=== PATIENT | male | born 1975 | race Caucasian/White ===

== ENCOUNTER 2019-12-01 01:55 | Emergency (ER) | payer SELFPAY ==
[2019-12-01] MEDS ORDERED: NORMAL SALINE 1000 ML 1,000 ML IV ONE (02:12)
[2019-12-01 02:36] LABS: ABSOLUTE EOSINOPHILS # (AUTO) 0.1 10^3/uL (0.0-0.6); ABSOLUTE LYMPHOCYTES (AUTO) 1.3 10^3/uL (0.5-4.7); ABSOLUTE MONOCYTES (AUTO) 0.7 10^3/uL (0.1-1.4); ABSOLUTE NEUT (AUTO) 5.8 10^3/uL (1.7-8.2); BASOPHILS % (AUTO) 0.2 % (0-2); EOSINOPHILS % (AUTO) 1.2 % (0-6); HEMATOCRIT 31.9 % (37.9-51.0); HEMOGLOBIN 11.5 g/dL (13.5-17.0); LYMPHOCYTES % (AUTO) 16.8 % (13-45); MEAN CORPUSCULAR HEMOGLOBIN 34.4 pg (27.0-33.4); MEAN CORPUSCULAR HGB CONC 36.1 g/dL (32.0-36.0); MEAN CORPUSCULAR VOLUME 95 fl (80-97); MONOCYTES % (AUTO) 9.3 % (3-13); RED BLOOD COUNT 3.35 10^6/uL (4.35-5.55); RED CELL DISTRIBUTION WIDTH 15.5 % (11.5-14.0); SEGMENTED NEUTROPHILS % (AUTO) 72.5 % (42-78); TOTAL CELLS COUNTED % (AUTO) 100 %
[2019-12-01 02:41] LABS: INTERNATIONAL RATION (INR) 2.01; PROTHROMBIN TIME 23.1 SEC (11.4-15.4)
[2019-12-01 02:48] LABS: ACETAMINOPHEN < 10 ug/mL (10-30); ALBUMIN 3.5 g/dL (3.5-5.0); ALCOHOL < 10 mg/dL (NONE DETECTED); ALKALINE PHOSPHATASE 156 U/L (38-126); ANION GAP 6 (5-19); ASPARTATE AMINO TRANSFERASE 114 U/L (17-59); BILIRUBIN,DIRECT 3.8 mg/dL (0.0-0.4); BILIRUBIN,TOTAL 8.4 mg/dL (0.2-1.3); BLOOD UREA NITROGEN 17 mg/dL (7-20); CALCIUM 8.7 mg/dL (8.4-10.2); CARBON DIOXIDE 24 mmol/L (22-30); CHLORIDE 105 mmol/L (98-107); GLUCOSE 122 mg/dL (75-110); POTASSIUM 3.6 mmol/L (3.6-5.0); SALICYLATE < 1.0 mg/dL (2.0-20.0); TOTAL PROTEIN 7.8 g/dL (6.3-8.2)
[2019-12-01 03:01] LABS: PLATELET COUNT 66 10^3/uL (150-450)
[2019-12-01 03:05] LABS: VENOUS BLOOD BASE EXCESS -0.9 mmol/L; VENOUS BLOOD HCO3 22.2 mmol/L (20-32); VENOUS BLOOD PCO2 31.3 mmHg (35-63); VENOUS BLOOD PH 7.47 (7.30-7.42)
--- NOTE | 2019-12-01 03:09 | ER Document Report ---
ED General - Related Data Home Medications: Folic acid 1 mg daily, propranolol 10 mg twice daily, Protonix 40 mg daily <NATALI STEVENSON - Last Filed: 12/01/19 06:04> <KIT GARCIA - Last Filed: 12/01/19 13:51> - General Mode of Arrival: Ambulatory Information source: Patient <DAMON INTERIANO - Last Filed: 12/01/19 17:29> - General Chief Complaint: Altered Mental Status Stated Complaint: ALTERED MENTAL STATUS Time Seen by Provider: 12/01/19 02:03 - HPI Notes: Patient is a 44-year-old male brought into the emergency department for evaluation. At this point I have very limited history. Evidently the patient was seen at [facility], discharged to go to [facility] for mental health/polysubstance abuse issues. He was at [facility] for approximately half an hour, staff there noted him to be jaundiced, have altered mental status, and did not feel he was adequately medically cleared. He was sent here for further evaluation. The patient cannot offer me no real medical history or information. (NATALI STEVENSON) - Related Data Allergies/Adverse Reactions: No Known Allergies Allergy (Unverified 12/01/19 04:41) Past Medical History - General Information source: Emergency Med Personnel, Outside Facility Records - Social History Smoking Status: Current Every Day Smoker Drug Abuse: Cocaine, Marijuana, Methamphetamine, Prescription drugs Family History: Other - Unable to obtain Patient has suicidal ideation: - pt unable to answer at this time Patient has homicidal ideation: - pt unable to answer at this time - Past Medical History Cardiac Medical History: Reports: Hx Hypertension GI Medical History: Reports: Hx Cirrhosis Psychiatric Medical History: Reports: Hx Depression <NATALI STEVENSON - Last Filed: 12/01/19 06:04> Review of Systems - Review of Systems -: Yes ROS unobtainable due to patient's medical condition <NATALI STEVENSON - Last Filed: 12/01/19 06:04> Physical Exam <NATALI STEVENSON - Last Filed: 12/01/19 06:04> - Vital signs Vitals: Resp Pulse Ox 18 96 12/01/19 01:59 12/01/19 01:59 - Notes Notes: Is a 44-year-old male who appears his stated age. He is lying in the bed, eyes closed, but will open them to verbal stimuli. He will follow commands. Only incomprehensible moans and sounds. Head is normocephalic and appears atraumatic, pupils are equal round, reactive to light. Sclera are icteric. Oral mucosa slightly dry. Heart is regular rate and rhythm, lungs are clear to oscillation bilaterally. Abdomen soft, nontender, normoactive bowel sounds. Skin is warm and dry, mild jaundice noted. Patient moves all 4 extremities spontaneously. Peripheral pulses are equal. (NATALI STEVENSON) Course - Laboratory Result Diagrams: 12/01/19 02:18 12/01/19 02:18 <NATALI STEVENSON - Last Filed: 12/01/19 06:04> - Laboratory Result Diagrams: 12/01/19 02:18 12/01/19 02:18 <KIT GARCIA - Last Filed: 12/01/19 13:51> - Laboratory Result Diagrams: 12/01/19 02:18 12/01/19 02:18 - Diagnostic Test Radiology reviewed: Image reviewed, Reports reviewed - CT head: No acute intracranial pathology CT abdomen and pelvis: Heterogeneity to the liver, compatible with cirrhosis, gallbladder sludge. No acute intra-abdominal pathology. Hepatobiliary scan: No obstruction or dysfunction noted. Chest x- ray: No acute cardiopulmonary findings. - EKG Interpretation by Me EKG shows normal: Sinus rhythm <DAMON INTERIANO - Last Filed: 12/01/19 17:29> - Re-evaluation Re-evalutation: 12/01/19 03:06 Patient presents to the emergency department for evaluation. He had laboratory investigations as ordered. I do not have a clear etiology of this patient's altered mental status. Certainly he has markedly elevated bilirubin, but I do not have a clear etiology for that at this time. His vital signs are stable. We will add imaging, continue to monitor. 12/01/19 04:48 In the meantime, I was able to obtain records from [facility] in regards to this patient. He evidently has a known history of cirrhosis. At this point I have already ordered an ultrasound of this patient's right upper quadrant to evaluate for any obstructive issues. Ultrasound was interpreted by radiology as showing a positive sonographic Gonzalez sign and gallbladder sludge. Will contact surgery in regards to evaluating this patient for possible cholecystitis. At this point the patient is afebrile, he has no leukocytosis. I do suspect that all of his issues are substance abuse induced. Otherwise, I compared patient's laboratory investigations to those done at [facility] earlier today, and they are largely unchanged. Patient is currently stable. Awaiting surgical consult for patient can be medically cleared. 12/01/19 06:[address] Mark, on-call surgeon. He recommends HIDA scan to further evaluate this patient's gallbladder. Orders placed. Assuming that in fact this patient does not have cholecystitis, I suspected. The patient will be medically cleared for psychosocial evaluation. (NATALI STEVENSON) 12/01/19 13:51 Patient care was transitioned to md by the overnight ED physician, Dr. Dyson, pending HIDA scan and reevaluation. Patient with no evidence for cholecystitis. Called in close communication up with Dr. Lazo who was made aware by the patient by the overnight surgeon. On reevaluation, patient is not having any abdominal pain and states he is hungry. He is awake, alert, and complaining of shoulder pain. Offered Tylenol or ibuprofen. Nursing note informs me the patient is having chest pain. EKG with no acute findings. Troponin and chest x-ray are ordered. Patient care will be transiti oned to Dr. Interiano. (KIT GARCIA) 12/01/19 17:21 Patient is alert and talking, CPK is normal review of his lab data history of cirrhosis, jaundice likely related to prior liver disease. The patient is medically cleared to go back to the psychiatric facility. (DAMON INTERIANO) - Vital Signs Vital signs: Temp Pulse Resp BP Pulse Ox 98.2 F 57 L 16 115/67 96 12/01/19 02:00 12/01/19 05:00 12/01/19 16:00 12/01/19 09:00 12/01/19 16:00 - Laboratory Laboratory results interpreted by me: 12/01/19 12/01/19 12/01/19 02:18 02:18 02:18 RBC 3.35 L Hgb 11.5 L Hct 31.9 L MCH 34.4 H MCHC 36.1 H RDW 15.5 H Plt Count 66 L PT 23.1 H VBG pH VBG pCO2 Sodium 135.4 L Glucose 122 H Total Bilirubin 8.4 H Direct Bilirubin 3.8 H AST 114 H Alkaline Phosphatase 156 H Creatine Kinase Urine Ketones Urine Urobilinogen Salicylates < 1.0 L Acetaminophen < 10 L 12/01/19 12/01/19 12/01/19 02:56 05:00 13:45 RBC Hgb Hct MCH MCHC RDW Plt Count PT VBG pH 7.47 H VBG pCO2 31.3 L Sodium Glucose Total Bilirubin Direct Bilirubin AST Alkaline Phosphatase Creatine Kinase 288 H Urine Ketones 20 H Urine Urobilinogen 4.0 H Salicylates Acetaminophen - EKG Interpretation by Me Additional EKG results interpreted by me: 12/01/19 03:08 Sinus bradycardia with a rate of 54 bpm. Normal axis, IVCD. Nonspecific ST and T wave changes, but no acute changes concerning for ischemia or infarction. No old studies available for comparison. (NATALI STEVENSON) Discharge <NATALI STEVENSON - Last Filed: 12/01/19 06:04> <KIT GARCIA - Last Filed: 12/01/19 13:51> <DAMON INTERIANO - Last Filed: 12/01/19 17:29> - Discharge Clinical Impression: Polysubstance abuse, Hyperbilirubinemia Altered mental status Qualifiers: Altered mental status type: unspecified Qualified Code(s): R41.82 - Altered mental status, unspecified Cirrhosis of liver Qualifiers: Hepatic cirrhosis type: other cirrhosis Qualified Code(s): K74.69 - Other cirrhosis of liver Condition: Stable Disposition: PSYCH HOSP/UNIT Additional Instructions: You are being discharged back to the [facility] for ongoing treatment and rehabilitation.
--- NOTE | 2019-12-01 04:31 | RADIOLOGY REPORT (SQ) ---
EXAM DESCRIPTION: US ABDOMEN LIMITED COMPLETED DATE/TME: 12/01/2019 03:11 CLINICAL HISTORY: 44 years Male, abnormal LFTs Comparison: None. LIMITATIONS: Bowel gas and body habitus artifact. FINDINGS: Gallbladder sludge, positive sonographic Gonzalez's test, 0.2 cm gallbladder wall thickness, moderate hepatic heterogeneity may indicated diffuse hepatic process such as fibrosis-cirrhosis, a 1.5-cm diameter common bile duct, no intrahepatic ductal dilation, hepatopetal patent flow of the portal vein, 10-cm right kidney with mild hydronephrosis, obscured pancreas, visualized vasculature/abdominal aorta, and no significant ascites appear otherwise unremarkable. IMPRESSION: 1. Gallbladder sludge and positive sonographic Gonzalez's test. Differential diagnosis includes cholecystitis and biliary colic. 2. 1.5 cm diameter enlarged common bile duct, nonspecific. No evidence of intrahepatic ductal dilation. 3. Mildly dilated right renal collecting system may indicate mild hydronephrosis. 4. Moderate heterogeneity of the liver which may indicate cirrhosis or other diffuse liver process. Consider contrast CT or MRI of the abdomen, liver protocol. 5. Limitation.
--- NOTE | 2019-12-01 04:49 | RADIOLOGY REPORT (SQ) ---
EXAM DESCRIPTION: CT HEAD WITHOUT IV CONTRAST COMPLETED DATE/TME: 12/01/2019 03:10 CLINICAL HISTORY: 44 years Male, altered mental status COMPARISON: None. TECHNIQUE: No contrast. Coronal and sagittal reformat. This exam was performed according to our departmental dose-optimization program, which includes automated exposure control, adjustment of the mA and/or kV according to patient size and/or use of iterative reconstruction technique. FINDINGS: No hemorrhage or infarct. No mass, mass effect, or midline shift. Moderate left maxillary mucosal thickening. Brain and extra-axial structures appear intact. IMPRESSION: No acute findings. Moderate left maxillary sinusitis.
[2019-12-01 05:29] LABS: APPEARANCE,URINE CLEAR; BILIRUBIN,URINE NEGATIVE (NEGATIVE); COLOR,URINE AMBER; GLUCOSE, URINE NEGATIVE (NEGATIVE); KETONES,URINE 20 mg/dL (NEGATIVE); LEUKOCYTE ESTERASE,URINE NEGATIVE (NEGATIVE); NITRITE,URINE NEGATIVE (NEGATIVE); PROTEIN,URINE NEGATIVE (NEGATIVE)
[2019-12-01 05:45] LABS: URINE BARBITURATES SCREEN NEGATIVE; URINE BENZODIAZEPINES SCREEN NEGATIVE; URINE METHADONE SCREEN NEGATIVE; URINE PHENCYCLIDINE SCREEN NEGATIVE
[2019-12-01 05:52] LABS: URINE COCAINE SCREEN UNCONFIRMED POSITIVE; URINE MARIJUANA (THC) SCREEN UNCONFIRMED POSITIVE
--- NOTE | 2019-12-01 07:31 | EKG REPORT ---
SEVERITY:- ABNORMAL ECG - SINUS RHYTHM NONSPECIFIC INTRAVENTRICULAR CONDUCTION DELAY LEFT VENTRICULAR HYPERTROPHY : Confirmed by: Majo Phillips 01-Dec-2019 07:31:15
--- NOTE | 2019-12-01 10:53 | RADIOLOGY REPORT (SQ) ---
EXAM DESCRIPTION: NM HIDA SCAN IMAGES COMPLETED DATE/TIME: 12/01/2019 10:34 am REASON FOR STUDY: eval for cholecystitis, elevated bilirubin COMPARISON: Same day ultrasound RADIONUCLIDE AND DOSE: DOSAGE RADIONUCLIDE: 5.23 millicuries Tc99m Mebrofenin. DOSAGE MORPHINE: Not required. The route of agent administration: Intravenous TECHNIQUE: Serial imaging right upper quadrant up to 60 minutes following injection of radionuclide. Patient imaged AP and Right Lateral. LIMITATIONS: None. FINDINGS: LIVER: Normal visualization without areas of photopenia. INTRA-HEPATIC BILE DUCTS: Temporal visualization normal. No dilatation. COMMON BILE DUCT: Normal without dilatation or delayed visualization. GALLBLADDER: Normal visualization. OTHER: No other significant finding. IMPRESSION: NORMAL STUDY WITHOUT CYSTIC OR COMMON DUCT OBSTRUCTION. TECHNICAL DOCUMENTATION: JOB ID: [id number] 2010 [employer]- All Rights Reserved Reading location - IP/workstation name: [email or web address]
[2019-12-01] MEDS ORDERED: ACETAMINOPHEN 325 MG TABLET PO ONE (13:22)
--- NOTE | 2019-12-01 14:17 | RADIOLOGY REPORT (SQ) ---
EXAM DESCRIPTION: CHEST SINGLE VIEW IMAGES COMPLETED DATE/TIME: 12/01/2019 2:07 pm REASON FOR STUDY: Chest pain COMPARISON: None. EXAM PARAMETERS: NUMBER OF VIEWS: One view. TECHNIQUE: Single frontal radiographic view of the chest acquired. RADIATION DOSE: NA LIMITATIONS: None. FINDINGS: LUNGS AND PLEURA: No opacities, masses or pneumothorax. No pleural effusion. MEDIASTINUM AND HILAR STRUCTURES: No masses. Contour normal. HEART AND VASCULAR STRUCTURES: Heart normal in size. Normal vasculature. BONES: No acute findings. HARDWARE: None in the chest. OTHER: No other significant finding. IMPRESSION: NO ACUTE RADIOGRAPHIC FINDING IN THE CHEST. TECHNICAL DOCUMENTATION: JOB ID: [id number] 2010 [employer]- All Rights Reserved Reading location - IP/workstation name: [email or web address]
[2019-12-01 17:39] VITALS: BP 118/70
--- NOTE | 2019-12-01 18:48 | EKG REPORT ---
SEVERITY:- ABNORMAL ECG - SINUS RHYTHM LEFT VENTRICULAR HYPERTROPHY PROLONGED QT INTERVAL : Confirmed by: Majo Phillips 01-Dec-2019 18:47:03
== END 2019-12-01 18:07 ==
LOC: ER 01:55
DX: F19.10 Other psychoactive substance abuse, uncomplicated (principal); E80.6 Other disorders of bilirubin metabolism; K74.69 Other cirrhosis of liver; R41.82 Altered mental status, unspecified; F17.200 Nicotine dependence, unspecified, uncomplicated; I10 Essential (primary) hypertension
CPT/HCPCS: 93005; 99285; 36415; 80307 ×4; 82140; 82550; 83735; 85025; 85610; 80053; 81001; 84484; 82803; 71045; 76705; 78226; 70450; 93010; A9537; J7030; Q9969

== ENCOUNTER 2019-12-02 23:38 | Emergency (ER) | payer SELFPAY ==
[2019-12-03 00:28] LABS: ABSOLUTE EOSINOPHILS # (AUTO) 0.1 10^3/uL (0.0-0.6); ABSOLUTE LYMPHOCYTES (AUTO) 1.2 10^3/uL (0.5-4.7); ABSOLUTE MONOCYTES (AUTO) 0.3 10^3/uL (0.1-1.4); ABSOLUTE NEUT (AUTO) 3.2 10^3/uL (1.7-8.2); BASOPHILS % (AUTO) 0.2 % (0-2); EOSINOPHILS % (AUTO) 2.4 % (0-6); HEMATOCRIT 31.8 % (37.9-51.0); HEMOGLOBIN 11.4 g/dL (13.5-17.0); LYMPHOCYTES % (AUTO) 24.2 % (13-45); MEAN CORPUSCULAR VOLUME 97 fl (80-97); MONOCYTES % (AUTO) 6.9 % (3-13); RED BLOOD COUNT 3.27 10^6/uL (4.35-5.55); RED CELL DISTRIBUTION WIDTH 15.8 % (11.5-14.0); SEGMENTED NEUTROPHILS % (AUTO) 66.3 % (42-78); TOTAL CELLS COUNTED % (AUTO) 100 %; WHITE BLOOD COUNT 4.8 10^3/uL (4.0-10.5)
[2019-12-03 00:54] LABS: PLATELET COUNT 68 10^3/uL (150-450)
--- NOTE | 2019-12-03 00:59 | RADIOLOGY REPORT (SQ) ---
Chest 2 view on 12/03/2019 at 12:36 AM CLINICAL INDICATION: Chest pain COMPARISON: 12/01/2019 FINDINGS: There is elevation of the right hemidiaphragm. There is mild linear atelectasis and/or scarring in the right lower lung. There is minimal left apical scarring. The lungs are otherwise clear. Cardiac, hilar and mediastinal contours are within normal limits. Pulmonary vascularity is within normal limits. IMPRESSION: No acute disease.
[2019-12-03 01:12] LABS: ALBUMIN 3.4 g/dL (3.5-5.0); ALKALINE PHOSPHATASE 185 U/L (38-126); ANION GAP 8 (5-19); ASPARTATE AMINO TRANSFERASE 94 U/L (17-59); BILIRUBIN,DIRECT 2.5 mg/dL (0.0-0.4); BILIRUBIN,TOTAL 5.5 mg/dL (0.2-1.3); BLOOD UREA NITROGEN 10 mg/dL (7-20); CALCIUM 8.5 mg/dL (8.4-10.2); CARBON DIOXIDE 23 mmol/L (22-30); CHLORIDE 110 mmol/L (98-107); CREATINE KINASE 121 U/L (55-170); GLUCOSE 93 mg/dL (75-110); POTASSIUM 3.8 mmol/L (3.6-5.0); TOTAL PROTEIN 7.9 g/dL (6.3-8.2)
[2019-12-03 01:28] LABS: CREATINE KINASE MB 1.78 ng/mL (<4.55); TROPONIN I 0.014 ng/mL
--- NOTE | 2019-12-03 03:19 | ER Document Report ---
ED General - General Chief Complaint: Shortness Of Breath Stated Complaint: SHORTNESS OF BREATH Time Seen by Provider: 12/03/19 02:53 Notes: 44-year-old male with cirrhosis presents to the emergency department from [facility] with chief complaint of left chest wall pain. Patient was seen here yesterday and had a full work-up to include a HIDA scan and was discharged to the treatment facility. While he was there he said started complaining of chest wall pain that was worse with movement and palpation. No associated shortness of breath. No nausea vomiting. No trauma that he can recall. States that he does not think he fell. - Related Data Allergies/Adverse Reactions: No Known Allergies Allergy (Verified 12/02/19 23:49) Home Medications: NOT TAKING MEDS Past Medical History - Social History Smoking Status: Current Every Day Smoker Family History: Other - Unable to obtain Patient has suicidal ideation: No Patient has homicidal ideation: No - Past Medical History Cardiac Medical History: Reports: Hx Hypertension GI Medical History: Reports: Hx Cirrhosis Psychiatric Medical History: Reports: Hx Depression Review of Systems - Review of Systems Constitutional: See HPI EENT: No symptoms reported Cardiovascular: See HPI Respiratory: See HPI Gastrointestinal: No symptoms reported Genitourinary: No symptoms reported Male Genitourinary: No symptoms reported Musculoskeletal: No symptoms reported Skin: No symptoms reported Hematologic/Lymphatic: No symptoms reported Neurological/Psychological: No symptoms reported Physical Exam - Vital signs Vitals: Temp 97.9 F 12/02/19 23:50 - Notes Notes: PHYSICAL EXAMINATION: Reviewed vital signs and charting by RN GENERAL: Alert, interacts well. No acute distress. HEAD: Normocephalic, atraumatic. EYES: Pupils equal and round. Extraocular movements intact. ENT: Oral mucosa moist, tongue midline. NECK: Full range of motion. Trachea midline. LUNGS: Clear to auscultation bilaterally, no wheezes, rales, or rhonchi. No respiratory distress. CHEST: Tenderness to palpation over the left hemithorax along the anterior axillary line HEART: Regular rate and rhythm. No murmur ABDOMEN: soft, non-tender. No distention. Bowel sounds present EXTREMITIES: Moves all 4 extremities spontaneously. No edema, No cyanosis. PSYCH: Normal affect, normal mood. SKIN: Warm, dry, normal turgor. No rashes or lesions noted. Course - Re-evaluation Re-evalutation: 12/03/19 03:16 Patient is well-appearing in no acute distress. Patient was just discharged from the emergency department to [facility] yesterday and appears with chest wall pain. Chest x-ray did not show any evidence of fracture, masses, pneumothorax, or any concerning etiology. Initial troponin negative and second troponin currently pending. Patient's total bilirubin has actually improved greatly from yesterday. EKG showed a sinus rhythm with a rate of 93, normal axis, left ventricular hypertrophy, no ST segment elevations or depressions, no T wave abnormalities. 12/03/19 03:36 Second troponin was negative. I explained to the patient is most likely musculoskeletal in nature. Patient did request something for the pain so I ordered ibuprofen 600 mg p.o. once. Patient is in agreement with the overall plan and is stable to discharge back to [facility]. - Vital Signs Vital signs: Temp Pulse Resp BP Pulse Ox 97.9 F 98 16 119/76 98 12/02/19 23:57 12/02/19 23:57 12/02/19 23:57 12/02/19 23:57 12/02/19 23:57 - Laboratory Result Diagrams: 12/03/19 00:10 12/03/19 00:10 Laboratory results interpreted by me: 12/03/19 12/03/19 00:10 00:10 RBC 3.27 L Hgb 11.4 L Hct 31.8 L MCH 35.0 H RDW 15.8 H Plt Count 68 L Chloride 110 H Total Bilirubin 5.5 H Direct Bilirubin 2.5 H AST 94 H ALT 51 H Alkaline Phosphatase 185 H Albumin 3.4 L Discharge - Discharge Clinical Impression: Chest wall pain Condition: Stable Disposition: REHAB FACILITY Additional Instructions: You were seen today for chest pain. The exact cause of your pain is unclear. However, based on your cardiac enzyme testing, chest x-ray, and EKG it does not appear that it is from an immediately life-threatening cause at this time. Although your testing here is normal is critical that you follow-up with your primary care physician for continued evaluation of this chest pain and possible stress testing. I recommended you see your physician within the next 24-48 hours to be evaluated for consideration of a stress test. Please return to emergency department immediately if you have worsening of your chest pain, shortness of breath, vomiting, become unable to exert yourself due to pain or difficulty breathing, you pass out, or have any pain that radiates into your arms, jaw, or back. Please also return if you have any additional symptoms that are concerning to you.
[2019-12-03] MEDS ORDERED: IBUPROFEN 600 MG TABLET PO ONE (03:34)
[2019-12-03 04:33] VITALS: BP 128/75
--- NOTE | 2019-12-05 11:07 | EKG REPORT ---
SEVERITY:- ABNORMAL ECG - SINUS RHYTHM LEFT VENTRICULAR HYPERTROPHY BORDERLINE T ABNORMALITIES, INFERIOR LEADS : Confirmed by: Majo Phillips 05-Dec-2019 11:07:18
== END 2019-12-03 04:20 ==
LOC: ER 23:38
DX: R07.89 Other chest pain (principal); R06.02 Shortness of breath; F17.200 Nicotine dependence, unspecified, uncomplicated; I10 Essential (primary) hypertension
CPT/HCPCS: 36415; 71046; 80053; 82550; 82553; 84484; 85025; 93005; 93010; 99285